=== PATIENT | male | born 1980 | race Caucasian/White ===

== ENCOUNTER 2017-02-18 20:25 | Emergency (ER) | payer SELFPAY ==
[2017-02-18 20:32] VITALS: BP 138/75; BMI 32.5
[2017-02-18] MEDS ORDERED: LEVAQUIN TAB 500 MG PO STA (21:03)
[2017-02-18] MEDS ORDERED: AUGMENTIN 500 MG/125 MG TAB PO ONE ×2 (21:04→21:12)
--- NOTE | 2017-02-18 21:09 | DR.GENAD ---
HPI - PCP Primary Care Physician: nfd - Complaint/Symptoms Chief Complaint Doctors Comments: Patient is complaining of swelling left side of his face for the past 24 hours worst last night but improved some during the day. States he felt the left side of his face with a nodule under his chin and swelling but denies fever, chills, cold,cough or recent trauma. States he is seeing a dentist to have his teeth fixed, Dr. Cruz and he is to see him again on 02/27/17. States he is not having any pain in his teeth or throat presently. Had a headache yesterday but none today. States he smokes two packs of cigaretted daily but denies alcohol usage. He denies problems with his balance or vision. Chief Complaint:: facial swelling on the lt side - Nurses notes reviewed Nurses Notes Review: Yes - Source History Provided: Patient - Mode of Arrival Mode of Arrival: Ambulatory - Timing Onset of Chief Complaint: 02/17/17 Came on: Gradually - Duration Duration: Constant How lon Duration: Days - Location Location: left facial swelling - Severity Severity: Mild - Modifying Factors Worsens:: nothing Improves:: nothing PMH - PMH Past Medical History: No Past Surgical History: No - Family History History of Family Medical Conditions: Yes Family Medical History: Hypertension - Social History Type of Tobacco Use: Cigarettes Does any household member use tobacco: No Alcohol Use: None Do you use any recreational Drugs:: No Lives With: Family Lives Where: Home - infectious screening In the last 2 months have you had wt loss of >10#?: NO Have you had fever, night sweats or hemotysis?: No Have you traveled outside the country in the last 6 months?: No Isolation: Standard ROS - Review of Systems Constitutional: No Symptoms Reported. negative: See HPI, Chills, Diaphoresis, Fever, Malaise, Weakness, Irritable, Fatigue, Loss of Appetite, Other Eyes: No Symptoms Reported. negative: See HPI, Eye Pain, Blurred Vision, Tearing, Discharge, Photophobia, Diplopia, Other ENTM: No Symptoms Reported, Nose Discharge, Nose Congestion. negative: See HPI , Ear Pain, Ear Discharge, Pulling on Ears, Hearing Loss, Nose Pain, Epistaxis, Mouth Pain, Mouth Swelling, Loose Teeth, Drooling, Throat Pain, Throat Swelling , Ear Foreign Body Respiratoy: No Symptoms Reported Cardiovascular: No Symptoms Reported. negative: See HPI, Chest Pain, Edema, Palpitations, Syncope, Cyanosis, Skin Mottling, Other Gastrointestinal/Abdominal: No Symptoms Reported Genitourinary: No Symptoms Reported. negative: See HPI, Discharge, Dysuria, Frequency, Hematuria, Pain, Bleeding, Other Neurological: No Symptoms Reported Musculoskeletal: No Symptoms Reported Integumentary: No Symptoms Reported, Wound (scalp with healing abrasion,old.) Hematologic/Lymphatic: No Symptoms Reported. negative: See HPI, Anemia, Blood Clots, Easy Bleeding, Easy Bruising, Swollen Glands, Lymphadenopathy, Other Endocrine: No Symptoms Reported Psychiatric: No Symptoms Reported PE - Vital Signs Vitals: Temperature 97 F Pulse Rate 91 Respiratory Rate 18 Blood Pressure 138/75 O2 Sat by Pulse Oximetry 97 - General Limitations: No Limitations General Appearance: Alert, In No Apparent Distress - Head Head Exam: Normal Inspection, Atraumatic, Normocephalic - Eyes Eye exam: Normal Appearance, PERRL, EOMI. negative: Scleral Icterus - ENT ENT Exam: Normal Exam, Normal Oropharynx, Normal External Ear Exam, Mucous Membranes Moist, TM's Normal Bilaterally (left facial swelling) External Ear Exam: Normal External Inspection TM/Canal Exam: Bilateral Normal Nose Exam: Normal Nose Exam Mouth Exam: Normal Inspection Throat Exam: Normal Inspection. negative: Tonsillar Erythema, Tonsillomegaly, Tonsillar Exudate (dental caries with tooth decayed at the base left molars and incisions), R Peritonsillar Mass, L Peritonsillar Mass - Neck Neck Exam: Normal Inspection, Full ROM, Trachea Midline, Lymphadenopathy (left submandibular lympadenapathy) - Chest Chest Inspection: Normal Inspection, Symmetric Chest Wall Rise - Respiratory Respiratory Exam: Normal Lung Sounds Bilat Respiratory Exam: Bilateral Clear to Auscultation - Cardiovascular Cardiovascular Exam: Regular Rate, Normal Rhythm, Normal Heart Sounds - Abdominal Exam Abdominal Exam: Normal Inspection, Normal Bowel Sounds, Soft Abdominal Tenderness: negative: RUQ, RLQ, LUQ, LLQ, Epigastrium, Suprapubic, Diffuse, Mild, Moderate, Severe, Other - Extremities Extremities Exam: Normal Inspection, Full ROM, Normal Capillary Refill. negative: Tenderness, Edema, Joint Swelling, Calf Tenderness, Other - Back Back Exam: Normal Inspection, Full ROM. negative: Tenderness, (R) CVA Tenderness, (L) CVA Tenderness, Muscle Spasm, Paraspinal Tenderness, Vertebral Tenderness, Rashes, (R) Sciatic Notch Tenderness, (L) Sciatic Notch Tendern, (R ) Straight Leg Raise, (L) Straight Leg Raise, Other - Neurologic Neurological Exam: Alert, Oriented X3, CN II-XII Intact, Normal Gait, Reflexes Normal - Psychiatric Psychiatric Exam: Normal Affect, Normal Mood. negative: Depressed, Agitated, Anxious, Flat Affect, Manic, Homicidal Ideation, Suicidal Ideation, Other - Skin Skin Exam: Warm, Dry, Intact, Normal Color - Diagnosis Discharge Problem: Cellulitis, face, Dental caries, Alveolar pyorrhea - Discharge Plan Disposition: HOME, SELF-CARE Condition: Stable Prescriptions: Amoxicillin 500 mg PO TID #30 cap Loratadine [Claritin] 10 mg PO DAILY #30 tab - Follow ups/Referrals Follow ups/Referrals: NFD,None [Primary Care Provider] - 3 days Jerry Medina [STAFF PHYSICIAN] - 3 days - Instructions Instructions: Cellulitis, Adult, [id number], Abscess, [id number], Dental Caries
[2017-02-18] MEDS ORDERED: LEVAQUIN TAB 500 MG ONE (21:12)
== END 2017-02-18 21:23 | disposition home or self-care (01) ==
LOC: ER 20:25
DX: L03.211 Cellulitis of face (principal); K02.9 Dental caries, unspecified; K05.30 Chronic periodontitis, unspecified
CPT/HCPCS: 99282

== ENCOUNTER 2017-03-23 20:20 | Emergency (ER) | payer SELFPAY ==
[2017-03-23 20:32] VITALS: BP 145/96; BMI 31.1
--- NOTE | 2017-03-23 21:27 | DR.GENAD ---
HPI - PCP Primary Care Physician: NFD - Complaint/Symptoms Chief Complaint Doctors Comments: Patient presents with complaint of rectal bleeding today. He has been on antibiotics times one last week for treatment of a cellulitis on dorsum of left forearm. The lesion was opened and hossein draind instill. Patient is presently on bactrim. He denies fever, admits to a rash that developed on lower extremity s/p being hospitalized and started on multiple antibiotics for treatment of his cellulitis. Chief Complaint:: STAPH IN LEFT ARM; I&D PER SURGEON IN [place]; SUTURES IN PLACE; DAILY DRESSING CHANGES; EDEMA NOTED TO LEFT ARM/HAND. RECTAL BLEEDING; RASH ON BILATERAL LOWER LEGS Self Treatment fo Chief Complaint: BACTRIM; HYDROCODONE 10/325MG - Source History Provided: Patient - Mode of Arrival Mode of Arrival: Ambulatory - Timing Onset of Chief Complaint: 03/17/17 PMH - PMH Past Medical History: Yes Past Medical History: Sleep Apnea Past Surgical History: No - Family History History of Family Medical Conditions: No Family Medical History: Hypertension - Social History Alcohol Use: None Do you use any recreational Drugs:: No Lives With: Spouse Lives Where: Home - infectious screening In the last 2 months have you had wt loss of >10#?: NO Have you had fever, night sweats or hemotysis?: No Have you traveled outside the country in the last 6 months?: No Isolation: Contact ROS - Review of Systems Eyes: No Symptoms Reported ENTM: No Symptoms Reported Respiratoy: No Symptoms Reported Cardiovascular: No Symptoms Reported Gastrointestinal/Abdominal: No Symptoms Reported Genitourinary: No Symptoms Reported Neurological: No Symptoms Reported Musculoskeletal: No Symptoms Reported Integumentary: Rash (lower extremities bilaterally) Hematologic/Lymphatic: No Symptoms Reported Endocrine: No Symptoms Reported Psychiatric: No Symptoms Reported All Other Systems: Reviewed and Negative PE - Vital Signs Vitals: Temperature 98.6 F Pulse Rate 92 Respiratory Rate 16 Blood Pressure 145/96 O2 Sat by Pulse Oximetry 93 - General Limitations: No Limitations General Appearance: Alert - Head Head Exam: Normal Inspection, Atraumatic - Eyes Eye exam: Normal Appearance, PERRL, EOMI - ENT ENT Exam: Normal Exam External Ear Exam: Normal External Inspection TM/Canal Exam: Bilateral Normal Nose Exam: Normal Nose Exam Mouth Exam: Normal Inspection Throat Exam: Normal Inspection - Neck Neck Exam: Normal Inspection, Full ROM - Chest Chest Inspection: Normal Inspection - Respiratory Respiratory Exam: Normal Lung Sounds Bilat Respiratory Exam: Bilateral Clear to Auscultation - Cardiovascular Cardiovascular Exam: Regular Rate, Normal Rhythm - Abdominal Exam Abdominal Exam: Normal Inspection Abdominal Tenderness: negative: RUQ, RLQ, LUQ, LLQ, Epigastrium, Suprapubic, Diffuse, Mild, Moderate, Severe, Other - Extremities Extremities Exam: Other (macular ) - Back Back Exam: Normal Inspection, Full ROM - Neurologic Neurological Exam: Alert, Oriented X3, CN II-XII Intact - Psychiatric Psychiatric Exam: Normal Affect, Normal Mood - Skin Skin Exam: Warm, Dry, Rash (macular non erythematous rash on bilateral extremities) ROR - Labs Reviewed Result Diagrams: 03/23/17 22:15 Laboratory: WBC 11.4 X10^3/uL (3.6-10.0) H 03/23/17 22:15 RBC 4.79 X10^6/uL (4.7-6.0) 03/23/17 22:15 Hgb 13.8 g/dL (13.5-18.0) 03/23/17 22:15 Hct 40.3 % (42.0-54.0) L 03/23/17 22:15 MCV 84.1 fL (80.0-100.0) 03/23/17 22:15 MCH 28.7 pg (27.0-34.0) 03/23/17 22:15 MCHC 34.1 g/dL (33.0-35.0) 03/23/17 22:15 RDW 13.5 % (11.6-16.5) 03/23/17 22:15 Plt Count 269 X10^3/uL (150.0-450.0) 03/23/17 22:15 MPV 7.7 fL (7.4-11.0) 03/23/17 22:15 Neut % 50.9 % (42.0-75.0) 03/23/17 22:15 Lymph % 36.1 % (21.0-51.0) 03/23/17 22:15 [place] % 5.0 % (0.0-13.0) 03/23/17 22:15 Eos % 6.7 % (0.9-2.9) H 03/23/17 22:15 Baso % 1.3 % (0.2-1.0) H 03/23/17 22:15 Neut # 5.8 x10^3/uL (2.2-4.8) H 03/23/17 22:15 Lymph # 4.1 X10^3/uL (1.3-2.9) H 03/23/17 22:15 [place] # 0.6 x10^3/uL (0.3-0.8) 03/23/17 22:15 Eos # 0.8 x10^3/uL (0.0-0.2) H 03/23/17 22:15 Baso # 0.1 X10^3/uL (0.0-0.1) 03/23/17 22:15 Absolute Nucleated RBC 0.1 /100WBC 03/23/17 22:15 Stool Description Fob 03/23/17 22:09 Stl Occult Blood (IFOB) Negative (NEGATIVE) 03/23/17 22:09 - Diagnosis Discharge Problem: Negative occult Blood in Stool - Discharge Plan Disposition: LWBS After Triage Condition: Stable - Follow ups/Referrals Follow ups/Referrals: NFD,None [Primary Care Provider] - 3 days - Instructions
[2017-03-23 22:27] LABS: BASOPHILS # (AUTO) 0.1 X10^3/uL (0.0-0.1); BASOPHILS % (AUTO) 1.3 % (0.2-1.0); EOSINOPHILS # (AUTO) 0.8 x10^3/uL (0.0-0.2); EOSINOPHILS % (AUTO) 6.7 % (0.9-2.9); HEMATOCRIT 40.3 % (42.0-54.0); HEMOGLOBIN 13.8 g/dL (13.5-18.0); LYMPHOCYTES # (AUTO) 4.1 X10^3/uL (1.3-2.9); LYMPHOCYTES % (AUTO) 36.1 % (21.0-51.0); MEAN CORPUSCULAR HEMOGLOBIN 28.7 pg (27.0-34.0); MEAN CORPUSCULAR HGB CONC 34.1 g/dL (33.0-35.0); MEAN CORPUSCULAR VOLUME 84.1 fL (80.0-100.0); MEAN PLATELET VOLUME 7.7 fL (7.4-11.0); MONOCYTES # (AUTO) 0.6 x10^3/uL (0.3-0.8); NEUTROPHILS # (AUTO) 5.8 x10^3/uL (2.2-4.8); NEUTROPHILS % (AUTO) 50.9 % (42.0-75.0); PLATELET COUNT 269 X10^3/uL (150.0-450.0); RED BLOOD COUNT 4.79 X10^6/uL (4.7-6.0); RED CELL DISTRIBUTION WIDTH 13.5 % (11.6-16.5); WHITE BLOOD COUNT 11.4 X10^3/uL (3.6-10.0)
== END 2017-03-23 22:38 | disposition left against medical advice (07) ==
LOC: ER 20:35
DX: K62.5 Hemorrhage of anus and rectum (principal)
CPT/HCPCS: 36415; 82270; 85025; 99282

== ENCOUNTER 2018-08-24 17:41 | Observation (INO) ==
[2018-08-24 17:51] VITALS: BMI 31.1
[2018-08-24] MEDS ORDERED: NITROSTAT ONE (18:00)
[2018-08-24] MEDS ORDERED: NITROSTAT SL PRN (18:01)
[2018-08-24 18:09] LABS: BASOPHILS # (AUTO) 0.1 X10^3/uL (0.0-0.1); BASOPHILS % (AUTO) 1.2 % (0.2-1.0); EOSINOPHILS # (AUTO) 0.5 x10^3/uL (0.0-0.2); EOSINOPHILS % (AUTO) 5.7 % (0.9-2.9); HEMATOCRIT 38.9 % (42.0-54.0); HEMOGLOBIN 13.5 g/dL (13.5-18.0); LYMPHOCYTES # (AUTO) 3.1 X10^3/uL (1.3-2.9); LYMPHOCYTES % (AUTO) 33.8 % (21.0-51.0); MEAN CORPUSCULAR HEMOGLOBIN 29.6 pg (27.0-34.0); MEAN CORPUSCULAR HGB CONC 34.6 g/dL (33.0-35.0); MEAN CORPUSCULAR VOLUME 85.4 fL (80.0-100.0); MEAN PLATELET VOLUME 7.1 fL (7.4-11.0); MONOCYTES # (AUTO) 0.6 x10^3/uL (0.3-0.8); MONOCYTES % (AUTO) 6.1 % (0.0-13.0); NEUTROPHILS # (AUTO) 4.8 x10^3/uL (2.2-4.8); NEUTROPHILS % (AUTO) 53.2 % (42.0-75.0); PLATELET COUNT 256 X10^3/uL (150.0-450.0); RED BLOOD COUNT 4.56 X10^6/uL (4.7-6.0); RED CELL DISTRIBUTION WIDTH 13.9 % (11.6-16.5); WHITE BLOOD COUNT 9.1 X10^3/uL (3.6-10.0)
--- NOTE | 2018-08-24 18:11 | RAD ---
HISTORY: Chest pain Study: Chest AP portable Comparison: None Findings: The heart is within normal limits in size. The rafy are normal. The lungs are mildly hyperinflated but free of acute infiltrates. No pleural effusions are identified. The bony thorax is unremarkable. IMPRESSION: Lungs mildly hyperinflated but clear Reported By:
[2018-08-24 18:25] LABS: BLOOD UREA NITROGEN 20 mg/dL (7-18); CALCIUM 9.1 mg/dL (8.5-10.1); CARBON DIOXIDE 27.5 mmol/L (21-32); CHLORIDE 105 mmol/L (98-107); CREATININE 1.11 mg/dL (0.70-1.30); SODIUM 141 mmol/L (136-145); TROPONIN I < 0.02 ng/mL (0-1.5); eGFR NON BLACK RACES > 60 (>60)
--- NOTE | 2018-08-24 18:25 | ED.ABCESS ---
HPI Time Seen Time Seen by Provider: 08/24/18 18:07 PCP Primary Care Physician: ANALISA HPI comment HPI Comment: Patient reports that had an acute onset of left chest pain that radiated down the left shoulder/arm and back as well as epigastric area. Pain r elieved with NTG X2. He admits to one previous episode two to three years ago in [place] but not as severe as this. He smokes 2 packs per day. He has a sibling with cardiac disease? Complaint Doctors Chief Complaint Comments: Chest pain Chief Complaint:: PT. STATES HE WAS GETTING OUT OF THE SHOWER AND HAD AN EPISODE OF CHEST PAIN AND SHORTNESS OF BREATH. PT. STATES HE HAD AN EPISODE ABOUT 2 YEARS AGO WITH THIS SAME PROBLEM AND SEEN DR. BAILEY. Source History Provided: Patient and EMS Mode of Arrival Mode of Arrival: EMS Timing Onset of Chief Complaint: 08/24/18 PMH PMH Past Medical History: Yes Past Medical History: Hypertension Past Surgical History: No Surgical History: No History Family History History of Family Medical Conditions: Yes Family Medical History: Diabetes Mellitus, [place], Coronary Artery Disease, Heart Failure, Sudden Cardiac and Hypertension Social History Does patient currently use any type of tobacco product: Yes Have you used tobacco products in the last 12 months: Yes Type of Tobacco Use: Cigarettes Does any household member use tobacco: Yes Alcohol Use: None Do you use any recreational Drugs:: No Lives With: Significant Other Lives Where: Home infectious screening In the last 2 months have you had wt loss of >10#?: NO Have you had fever, night sweats or hemotysis?: No Have you traveled outside the country in the last 6 months?: No Isolation: Standard ROS Review of Systems Constitutional: No Symptoms Reported Eyes: No Symptoms Reported ENTM: No Symptoms Reported Respiratoy: Short of Breath Cardiovascular: See HPI and Chest Pain Genitourinary: No Symptoms Reported Neurological: Weakness Musculoskeletal: No Symptoms Reported Integumentary: No Symptoms Reported Hematologic/Lymphatic: No Symptoms Reported Endocrine: No Symptoms Reported Psychiatric: No Symptoms Reported All Other Systems: Reviewed and Negative PE Vital Signs Vital Signs: Temp Pulse Pulse Resp BP BP Pulse Ox 08/24/18 20:56 76 18 133/75 99 08/24/18 19:31 74 27 H 156/93 99 08/24/18 19:30 82 35 H 98 08/24/18 19:15 69 18 137/84 98 08/24/18 19:00 68 17 136/81 100 08/24/18 18:45 77 19 133/79 98 08/24/18 18:32 80 22 150/81 99 08/24/18 18:15 80 20 134/64 99 08/24/18 18:07 20 08/24/18 18:02 22 08/24/18 18:01 90 22 133/81 99 08/24/18 17:48 98.1 F 93 H 22 132/79 98 06/22/18 14:21 118/78 118/78 General Limitations: No Limitations General Appearance: Alert and Anxious Head Head Exam: Normal Inspection, Atraumatic and Normocephalic Eyes Eye exam: Normal Appearance and PERRL ENT ENT Exam: Normal Exam and Normal Oropharynx Neck Neck Exam: Normal Inspection, Full ROM and Trachea Midline Respiratory Respiratory Exam: Normal Lung Sounds Bilat Respiratory Exam: Bilateral: Clear to Auscultation Cardiovascular Cardiovascular Exam: Regular Rate and Normal Rhythm Abdominal Exam Abdominal Exam: Normal Inspection, Normal Bowel Sounds and Soft Extremities Extremities Exam: Normal Inspection and Full ROM Back Back Exam: Normal Inspection and Full ROM Neurologic Neurological Exam: Alert, Oriented X3 and CN II-XII Intact Psychiatric Psychiatric Exam: Normal Affect and Normal Mood Skin Skin Exam: Warm, Dry and Intact COURSE Treatment Treatment: NTZ x2 pain level 2. Reevaluation 1st: Improved Consultation Called: 19:45 Consultation Comments: Dr. Medina agreed to admit for chest pain r/o [place] ROR Labs Reviewed Laboratory Results Reviewed?: Yes Result Diagrams: 08/24/18 18:00 08/24/18 18:00 Laboratory: WBC 9.1 X10^3/uL (3.6-10.0) 08/24/18 18:00 RBC 4.56 X10^6/uL (4.7-6.0) L 08/24/18 18:00 Hgb 13.5 g/dL (13.5-18.0) 08/24/18 18:00 Hct 38.9 % (42.0-54.0) L 08/24/18 18:00 MCV 85.4 fL (80.0-100.0) 08/24/18 18:00 MCH 29.6 pg (27.0-34.0) 08/24/18 18:00 MCHC 34.6 g/dL (33.0-35.0) 08/24/18 18:00 RDW 13.9 % (11.6-16.5) 08/24/18 18:00 Plt Count 256 X10^3/uL (150.0-450.0) 08/24/18 18:00 MPV 7.1 fL (7.4-11.0) L 08/24/18 18:00 Neut % (Auto) 53.2 % (42.0-75.0) 08/24/18 18:00 Lymph % (Auto) 33.8 % (21.0-51.0) 08/24/18 18:00 Price % (Auto) 6.1 % (0.0-13.0) 08/24/18 18:00 Eos % (Auto) 5.7 % (0.9-2.9) H 08/24/18 18:00 Baso % (Auto) 1.2 % (0.2-1.0) H 08/24/18 18:00 Neut # (Auto) 4.8 x10^3/uL (2.2-4.8) 08/24/18 18:00 Lymph # (Auto) 3.1 X10^3/uL (1.3-2.9) H 08/24/18 18:00 Price # (Auto) 0.6 x10^3/uL (0.3-0.8) 08/24/18 18:00 Eos # (Auto) 0.5 x10^3/uL (0.0-0.2) H 08/24/18 18:00 Baso # (Auto) 0.1 X10^3/uL (0.0-0.1) 08/24/18 18:00 Absolute Nucleated RBC 0.0 /100WBC 08/24/18 18:00 INR Target Range - 08/24/18 18:00 INR 1.10 (0.8-1.3) 08/24/18 18:00 APTT 30.0 SECONDS (22.9-36.5) 08/24/18 18:00 PTT Comment - 08/24/18 18:00 Sodium 141 mmol/L (136-145) 08/24/18 18:00 Corrected Sodium 142 mmol/L (136-145) 08/24/18 18:00 Potassium 3.7 mmol/L (3.5-5.1) 08/24/18 18:00 Chloride 105 mmol/L (98-107) 08/24/18 18:00 Carbon Dioxide 27.5 mmol/L (21-32) 08/24/18 18:00 BUN 20 mg/dL (7-18) H 08/24/18 18:00 Creatinine 1.11 mg/dL (0.70-1.30) 08/24/18 18:00 Est GFR (MDRD) Af Amer > 60 (>60) 08/24/18 18:00 Est GFR (MDRD) Non-Af > 60 (>60) 08/24/18 18:00 Glucose 137 mg/dL (65-99) H 08/24/18 18:00 Calcium 9.1 mg/dL (8.5-10.1) 08/24/18 18:00 Corrected Calcium TNP 08/24/18 18:00 Total Bilirubin 0.20 mg/dL (0.2-1.0) 08/24/18 18:00 AST 19 Units/L (15-37) 08/24/18 18:00 ALT 38 Units/L (12-78) 08/24/18 18:00 Alkaline Phosphatase 75 Units/L (46-116) 08/24/18 18:00 Creatine Kinase 286 Units/L (39-308) 08/24/18 18:00 CK-MB (CK-2) 1.8 ng/mL (0-4.0) 08/24/18 18:00 CK/CKMB % Calc 0.6 % (<4) 08/24/18 18:00 Troponin I < 0.02 ng/mL (0-1.5) 08/24/18 18:00 Total Protein 7.4 g/dL (6.4-8.2) 08/24/18 18:00 Albumin 3.6 g/dL (3.4-5.0) 08/24/18 18:00 Globulin 3.8 g/dL (2.5-4.5) 08/24/18 18:00 Albumin/Globulin Ratio 0.9 Ratio (1.1-2.1) L 08/24/18 18:00 Amylase 57 Units/L (25-115) 08/24/18 18:00 Lipase 303 Units/L (73-393) 08/24/18 18:00 Other Results Comments: Chest: lungs mildly hyperinflated but clear XRAY XRAY Interpreted by: Radiologist Opioid Opioid Risk Tool Total: 0 Total Score Risk Category: Low Risk Copyright: Albert HENNESSY predicting aberrant behaviors Instructions Forms: Excuse From Work ADDITIONAL NOTES Additional Notes Additional Notes: Chest Pain r/o protocol admission
[2018-08-24 18:30] LABS: ALANINE AMINOTRANSFERASE 38 Units/L (12-78); ALBUMIN 3.6 g/dL (3.4-5.0); ALKALINE PHOSPHATASE 75 Units/L (46-116); ASPARTATE AMINO TRANSFERASE 19 Units/L (15-37); CKMB % 0.6 % (<4); CREATINE KINASE 286 Units/L (39-308); CREATINE KINASE MB 1.8 ng/mL (0-4.0); TOTAL PROTEIN 7.4 g/dL (6.4-8.2)
[2018-08-24 18:53] LABS: COR NA(FOR HYPERGLY) 142 mmol/L (136-145)
[2018-08-24 19:36] LABS: AMYLASE 57 Units/L (25-115); LIPASE 303 Units/L (73-393)
[2018-08-24 23:58] LABS: CKMB % 0.6 % (<4); CREATINE KINASE 283 Units/L (39-308); CREATINE KINASE MB 1.7 ng/mL (0-4.0); TROPONIN I < 0.02 ng/mL (0-1.5)
[2018-08-25 05:30] LABS: BASOPHILS # (AUTO) 0.1 X10^3/uL (0.0-0.1); BASOPHILS % (AUTO) 0.9 % (0.2-1.0); EOSINOPHILS # (AUTO) 0.6 x10^3/uL (0.0-0.2); EOSINOPHILS % (AUTO) 6.6 % (0.9-2.9); HEMATOCRIT 40.4 % (42.0-54.0); HEMOGLOBIN 13.6 g/dL (13.5-18.0); LYMPHOCYTES # (AUTO) 2.7 X10^3/uL (1.3-2.9); MEAN CORPUSCULAR HEMOGLOBIN 28.9 pg (27.0-34.0); MEAN CORPUSCULAR HGB CONC 33.7 g/dL (33.0-35.0); MEAN CORPUSCULAR VOLUME 85.8 fL (80.0-100.0); MEAN PLATELET VOLUME 7.8 fL (7.4-11.0); MONOCYTES # (AUTO) 0.6 x10^3/uL (0.3-0.8); MONOCYTES % (AUTO) 7.4 % (0.0-13.0); NEUTROPHILS # (AUTO) 4.3 x10^3/uL (2.2-4.8); NEUTROPHILS % (AUTO) 52.1 % (42.0-75.0); PLATELET COUNT 237 X10^3/uL (150.0-450.0); RED BLOOD COUNT 4.71 X10^6/uL (4.7-6.0); WHITE BLOOD COUNT 8.3 X10^3/uL (3.6-10.0)
[2018-08-25 05:52] LABS: CHOL/HDL RATIO 5.5 (0.0-5.0)
[2018-08-25 05:58] LABS: ALANINE AMINOTRANSFERASE 29 Units/L (12-78); ALBUMIN 3.3 g/dL (3.4-5.0); ALKALINE PHOSPHATASE 69 Units/L (46-116); ASPARTATE AMINO TRANSFERASE 16 Units/L (15-37); BLOOD UREA NITROGEN 18 mg/dL (7-18); CALCIUM 8.7 mg/dL (8.5-10.1); CARBON DIOXIDE 26.5 mmol/L (21-32); CHLORIDE 106 mmol/L (98-107); CKMB % 0.8 % (<4); COR CA(FOR HYPOALB) 9.3 mg/dL (8.5-10.1); CREATINE KINASE 236 Units/L (39-308); CREATINE KINASE MB 1.9 ng/mL (0-4.0); CREATININE 0.97 mg/dL (0.70-1.30); SODIUM 142 mmol/L (136-145); TOTAL PROTEIN 6.9 g/dL (6.4-8.2); TROPONIN I < 0.02 ng/mL (0-1.5); eGFR NON BLACK RACES > 60 (>60)
[2018-08-25 08:08] VITALS: BP 159/83
--- NOTE | 2018-09-05 08:58 | DR.CARTERS ---
Short Stay Summary - Admission Date Date of Admission: 08/24/18 - Discharge Date Discharge Date: 08/25/18 - Admission Diagnoses (1) Chest pain Status: Acute - Hospital Course Hospital Course: IS A 38 YEAR OLD WHITE MALE WHO PRESENTED TO THE ER WITH COMPLAINTS OF CHEST PAIN AND SHORTNESS OF BREATH. HE STATED THAT CHEST PAIN RADIATES DOWN THE LEFT SHOULDER AND ARM WELL THE EPIGASTRIC AREA. HE REPORTED SMOKING TWO PACKS OF CIGARETTES/DAY. ON ARRIVAL, VITALS WERE 98.1-93-22-98%-132/79. LABS WERE OBTAINED. ABNORMAL LAB VALUES INCLUDE THE FOLLOWING: RBC 4.56, HGB 38.9, B UN 20, GLUCOSE 137, CARDIAC ENZYMES WITHIN NORMAL LIMITS. AN EKG WAS OBTAINED AND REVEALED: SINUS RHYTHM WITH HR 88. CHEST XRAY REVEALED: LUNGS HYPERINFLATED BUT CLEAR. HE WAS GIVEN NITROGLYCERIN X 2, WHICH DID RELIEVE HIS PAIN. HE WAS ADMITTED TO THE HOSPITAL FOR FURTHER EVALUATION AND TREATMENT OF CHEST PAIN, RULE OUT ACUTE [place]. WE PLANNED TO FOLLOW UP WITH SERIAL CARDIAC ENZYMES AND EKGS AND CONTINUE TO MONITOR. ON THE MORNING FOLLOWING ADMISSION, PATIENT IS ALERT AND ORIENTED, LYING IN BED ON MORNING ROUNDS. HE REPORTS FEELING WELL AND DENIES PAIN. ON EXAMINATION, HEART IS REGULAR IN RATE AND RHYTHM. BILATERAL LUNGS ARE NOTED WITH DIMINISHED LUNG SOUNDS THROUGHOUT. ABDOMEN IS ROUND, SOFT, AND NON-TENDER WITH NORMAL BOWEL SOUNDS NOTED IN ALL QUADRNATS. HIS VITALS THIS MORNING ARE: 98.0- 70-18-97%-159/83. LABS WERE OBTAINED. ABNORMAL LAB VALUES INCLUDE THE FOLLOWING: HCT 40.4, GLUCOSE 108, ALBUMIN 3.3, TRIGLYCERIDES 208, HDL 31, CHOLESTEROL 5.5. CARDIAC ENZYMES HAVE BEEN WITHIN NORMAL LIMITS. NO CHANGES NOTED TO EKGS. WE PLANNED FOR DISCHARGE. INSTRUCTIONS FOR MEDICATIONS AND FOLLOW UP WERE DISCUSSED WITH PATIENT AND FAMILY. THEY VERBALIZED UNDERSTANDING. HE WAS GIVEN NEW PRESCRIPTIONS FOR ASPIRIN 325MG PO DAILY, METOPROLOL 25MG PO DAILY, AND ROSUVASTATIN 10MG PO HS. HE WAS DISCHARGED HOME WITH FAMILY IN STABLE CONDITION. - Discharge Medications Discharge Medications: Home Medication List aspirin [Ecotrin] 325 mg PO QDAY #30 tab 08/25/18 [Rx] metoprolol succinate 25 mg PO QDAY #30 tab 08/25/18 [Rx] rosuvastatin 10 mg PO HS #30 tab 08/25/18 [Rx] Prescriptions: aspirin [Ecotrin] Jerry Medina metoprolol succinate Jerry Medina rosuvastatin Jerry Medina - Discharge Plan Disposition: 01 HOME, SELF-CARE Condition: Stable Prescriptions: aspirin [Ecotrin] 325 mg PO QDAY #30 tab metoprolol succinate 25 mg PO QDAY #30 tab rosuvastatin 10 mg PO HS #30 tab - Follow up/Referrals Follow up/Referrals: NFD,None [Primary Care Provider] - 3 days - Instructions Instructions: Nonspecific Chest Pain, Chest Wall Pain Additional Instructions: DIET TOLERATED. ACTIVITY TOLERATED. Forms: Excuse From Work
== END 2018-08-25 09:45 | disposition home or self-care (01) ==
LOC: ER 17:41 → MED/SURG 17:41
PROVIDERS: ADMIT Internal Medicine; ATTEND Internal Medicine
DX: R73.09 Other abnormal glucose; Z72.0 Tobacco use; M25.512 Pain in left shoulder; R06.02 Shortness of breath; M79.602 Pain in left arm; I25.10 Atherosclerotic heart disease of native coronary artery without angina pectoris; R07.89 Other chest pain
CPT/HCPCS: 36415; 71010; 71045; 80053; 80061; 82150; 82550; 82553; 83690; 84484; 85025; 85610; 85730; 93005; 94760; 96365; 99284; A4216; G0378